=== PATIENT | male | born 1965 | race African-American/Black ===

== ENCOUNTER 2019-01-12 14:50 | Inpatient (IN) ==
[2019-01-12] MEDS ORDERED: fentaNYL 100 MCG/2 ML VIAL IV STA (15:04)
[2019-01-12] MEDS ORDERED: ONDANSETRON 4 MG/2 ML VIAL IV STA (15:04)
[2019-01-12 15:38] LABS: Basophils # 0.1 10*3/uL (0.0-0.2); Basophils % 0.5 % (0.0-0.8); Eosinophils % 0.4 % (0.00-10.9); Hematocrit 43.8 VOL% (42.0-52.0); Hemoglobin 13.8 GM/DL (14.0-18.0); Immature Granulocytes % 0.6 %; Immature Granulocytes Absolute 0.06 #; Lymphocytes # 2.2 10*3/uL (1.4-4.0); Lymphocytes % 19.8 % (21.2-54.2); Mean Corpuscular HGB Conc 31.5 GM/DL (32-36); Mean Corpuscular Hemoglobin 29 PG (27-34); Mean Corpuscular Volume 91.3 FL (87-102); Mean Platelet Volume 9.7 FL (9.6-12.0); Monocytes # 0.5 10*3/uL (0.11-0.8); Monocytes % 4.7 % (1.7-12.7); Neutrophils # 8.1 10*3/uL (1.4-7.4); Platelet Count 226 T/CUMM (130-400); Red Cell Distribution Width 12.6 % (9.3-17.3); White Blood Count 10.9 T/CUMM (4-12)
[2019-01-12 15:47] LABS: PT Patient Result 10.5 SECS; Partial Thromboplastin Time < 21.0 SECS (0-40)
[2019-01-12 16:12] LABS: Albumin 3.7 G/DL (3.4-5.0); Bilirubin,Total 0.8 MG/DL (0.2-1.0); Calcium 8.8 MG/DL (8.5-10.1); Osmolality,Calculated 287.1 MOS/KG (273-304); Total Protein 7.1 G/DL (6.4-8.3)
[2019-01-12] MEDS ORDERED: MAGNESIUM HYDROXIDE SUSP 30 ML UDCUP PO PRN (16:46)
[2019-01-12] MEDS ORDERED: ceFAZolin 1,000 MG VIAL ONE (18:04)
[2019-01-12] MEDS ORDERED: ALBUMIN 5% 12.5 GM/250 ML VIAL IV ONE (19:54)
[2019-01-12] MEDS ORDERED: ONDANSETRON 4 MG/2 ML VIAL ONE (21:08)
[2019-01-12] MEDS ORDERED: MIDAZOLAM 2 MG/2 ML VIAL ONE (21:08)
[2019-01-12] MEDS ORDERED: KETOROLAC 30 MG/1 ML VIAL ONE (21:08)
[2019-01-12] MEDS ORDERED: fentaNYL 100 MCG/2 ML VIAL ONE (21:08)
[2019-01-12] MEDS ORDERED: DEXAMETHASONE 4 MG/1 ML VIAL ONE (21:08)
[2019-01-12] MEDS ORDERED: SUCCINYLCHOLINE 200 MG/10 ML VIAL ONE (21:09)
[2019-01-12] MEDS ORDERED: ROCURONIUM 100 MG/10 ML VIAL IV ONE (21:09)
[2019-01-12] MEDS ORDERED: NEOSTIGMINE 10 MG/10 ML VIAL ONE (21:09)
[2019-01-12] MEDS ORDERED: LACTATED RINGERS 3,000 ML IV ONE (21:09)
[2019-01-12] MEDS ORDERED: GLYCOPYRROLATE 0.4 MG/2 ML VIAL ONE (21:09)
[2019-01-12] MEDS ORDERED: ACETAMINOPHEN 1,000 MG/100 ML VIAL IV ONE (21:09)
[2019-01-12] MEDS ORDERED: PHENYLEPHRINE 1 MG/10 ML SYRINGE IV ONE (21:09)
[2019-01-12] MEDS ORDERED: MEPERIDINE 25 MG/1 ML VIAL ONE (21:10)
[2019-01-12] MEDS ORDERED: MEPERIDINE 25 MG/1 ML VIAL IV PRN (21:11)
[2019-01-12] MEDS ORDERED: MORPHINE 10 MG/1 ML VIAL IM PRN (21:48)
[2019-01-12] MEDS: DEXTROSE 5% NACL 0.45% 1,000 ML IV SCH (22:26)
[2019-01-13] MEDS: DEXTROSE 5% NACL 0.45% 1,000 ML IV SCH ×2 (14:43→21:14)
[2019-01-13] MEDS: ENOXAPARIN 40 MG/0.4 ML SYRINGE SUBCUT SCH (21:11)
[2019-01-14] MEDS ORDERED: MAGNESIUM HYDROXIDE SUSP 30 ML UDCUP PO PRN (17:17)
[2019-01-14] MEDS ORDERED: BISACODYL 10 MG SUPP RECTAL PRN (17:18)
[2019-01-14] MEDS: ENOXAPARIN 40 MG/0.4 ML SYRINGE SUBCUT SCH (20:08)
[2019-01-15 06:27] LABS: Red Cell Distribution Width 12.5 % (9.3-17.3)
[2019-01-15 06:34] LABS: Basophils % 0.5 % (0.0-0.8); Eosinophils % 0.3 % (0.00-10.9); Hematocrit 26.7 VOL% (42.0-52.0); Immature Granulocytes % 0.5 %; Immature Granulocytes Absolute 0.04 #; Lymphocytes # 1.5 10*3/uL (1.4-4.0); Lymphocytes % 20.4 % (21.2-54.2); Mean Corpuscular HGB Conc 31.5 GM/DL (32-36); Mean Corpuscular Hemoglobin 29 PG (27-34); Mean Corpuscular Volume 91.1 FL (87-102); Monocytes # 0.7 10*3/uL (0.11-0.8); Neutrophils % 68.3 % (38.7-73.9)
[2019-01-15 06:40] LABS: Hemoglobin 8.4 GM/DL (14.0-18.0); Platelet Count 161 T/CUMM (130-400); Red Blood Count 2.93 MC/CUMM (3.8-5.5); White Blood Count 7.4 T/CUMM (4-12)
[2019-01-15 07:06] VITALS: BP 122/61
== END 2019-01-15 11:04 | disposition home or self-care (01) | DRG 482 ==
LOC: EDUNIT# → EDBD → N.ED 14:50 → N.EDINP 16:46 → N.3E 20:22
PROVIDERS: ADMIT Orthopaedic Surgery; ATTEND Orthopaedic Surgery